=== PATIENT | female | born 1950 | race Caucasian/White ===

== ENCOUNTER 2022-01-25 12:37 | Day surgery (SDC) | payer MEDICARE ==
[2022-01-25] MEDS ORDERED: Lidocaine 1% PF 5 ML VIAL ONE (12:47)
[2022-01-25] MEDS ORDERED: Sodium Bicarbonate 2.5 MEQ/5 ML VIAL ONE (12:47)
[2022-01-25 13:38] VITALS: BP 139/48
== END 2022-01-25 13:40 | disposition home or self-care (01) ==
LOC: ULT 12:37
PROVIDERS: ATTEND Student in an Organized Health Care Education/Training Program
PROC: 0G9G3ZX Drainage of Left Thyroid Gland Lobe, Percutaneous Approach, Diagnostic (ICD-10-PCS; principal; 2022-01-25)
DX: E04.1 Nontoxic single thyroid nodule (principal); E03.9 Hypothyroidism, unspecified; I10 Essential (primary) hypertension; Z79.82 Long term (current) use of aspirin; Z79.899 Other long term (current) drug therapy; Z88.0 Allergy status to penicillin
CPT/HCPCS: 60100; 76942; 88173

== ENCOUNTER 2023-01-31 09:00 | Outpatient (CLI) | payer MEDICARE | END 2023-01-31 09:01 | disposition home or self-care (01) | LOC: BICULT 09:00 | PROVIDERS: ATTEND Physician Assistant | DX: K80.20 Calculus of gallbladder without cholecystitis without obstruction (principal); E04.1 Nontoxic single thyroid nodule; K63.5 Polyp of colon; E66.9 Obesity, unspecified; Z80.0 Family history of malignant neoplasm of digestive organs | CPT/HCPCS: 76536; 76705 ==